=== PATIENT | male | born 1970 | race Caucasian/White ===

== ENCOUNTER → 2023-07-12 15:48 | Outpatient (CLI) | payer OTHER, SELFPAY ==
--- NOTE | ~2023-07-12 | XR_ITS ---
Lumbosacral Spine: AP and lateral views Clinical History: Pain Findings: The normal lordotic curve is maintained. No fracture seen. There is minimal grade 1 anterol isthesis of L3 over L4. There is mild facet arthropathy. The intervertebral disc spaces are preserved . The sacroiliac joints are normally outlined. Impression: Minimal grade 1 anterolisthesis of L3 over L4. Reviewed, dictated and finalized at location . NING DEVELOPMENT MANAGER Impression: Minimal grade 1 anterolisthesis of L3 over L4.
== END ==
PROVIDERS: PCP Nurse Practitioner Family; Visit Provider Nurse Practitioner Family
DX: M43.16 Spondylolisthesis, lumbar region (principal)
CPT/HCPCS: 72100